=== PATIENT | male | born 1955 | race Asian ===

== ENCOUNTER 2024-09-07 21:39 | Emergency (ER) | payer OTHER ==
[~2024-09-07] VITALS: Ht 165.1 cm; Wt 67.0 kg
[2024-09-07 22:12] VITALS: TEMP 36.7; O2SAT 99
[2024-09-07 23:39] VITALS: TEMP 98
[2024-09-07] MEDS: LIDOCAINE 5% PATCH TOP SCH (23:39)
[2024-09-07] MEDS: ACETAMINOPHEN 500MG TABLET PO ONE (23:39)
[2024-09-08] MEDS ORDERED: NAPR-1176 MT (00:25)
[2024-09-08] MEDS ORDERED: LIDO-53 TP (00:25)
[2024-09-08 00:52] VITALS: BP 159/98; PULSE 62; RESP 18; O2SAT 100
== END 2024-09-08 00:53 | disposition home or self-care (01) ==
LOC: ER 21:39
DX: M54.2 Cervicalgia (principal); E78.00 Pure hypercholesterolemia, unspecified; Z79.899 Other long term (current) drug therapy; X58.XXXA Exposure to other specified factors, initial encounter; Y93.89 Activity, other specified; Y92.89 Other specified places as the place of occurrence of the external cause; Y99.8 Other external cause status
CPT/HCPCS: 99284